=== PATIENT | male | born 1965 | race Caucasian/White ===

== ENCOUNTER 2017-04-09 12:02 | Inpatient (IN) | payer BC ==
--- NOTE | ~2017-04-09 | HP ---
History And Physical [address] [place]. [address] NAME: TAVO ONOFRE : 69 STATUS : ADM IN [facility]#: [id number] AGE: 51 ADM/REG DATE : 04/09/17 MR#: [id number] REPORT SERV DATE: 04/09/17 DICTATED BY: QUINTON OGDEN JR. DATE: 04/09/17 REPORT STATUS : Draft TRANSCRIBED BY: DARIO DATE: 04/09/17 DATE OF ADMISSION: 04/09/2017 CHIEF COMPLAINT: Chest pain. 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 He was in [place] for Mother's Day with family. He was in [place] when he developed substernal chest pain similar to prior presentations. The patient presented via EMS with ST-elevation inferior leads concerning for STEMI, and STEMI protocol was activated. The patient has been in his usual state of health with high functional capacity prior to this with no angina. PAST MEDICAL HISTORY: Includes prior myocardial infarction. He had stenting in the proximal and distal RCA as well as bifurcation stenting in the LAD and 1st diagonal in the past. His first NH he believes was in 2013. He has hypertension, mixed hyperlipidemia. He denies prior TIA or stroke or diabetes or renal insufficiency. ALLERGIES: DENIED. CURRENT MEDICATIONS: Please see the home medication sheet which was reviewed. SOCIAL HISTORY: He does not smoke, abuse alcohol, or use recreational drugs. FAMILY HISTORY: Negative for premature vascular events. REVIEW OF SYSTEMS: The patient denies fever or chills, bleeding diathesis, sudden weight gain or weight loss. Remainder as in HPI or negative. PHYSICAL EXAMINATION: VITAL SIGNS: Blood pressure is 112/81, heart rate 94, respirations 16. GENERAL: Middle-aged male, who is uncomfortable, in no acute distress. HEENT: Anicteric, no scleral injection, no oral lesions. NECK: No JVD, supple, no bruits. LUNGS: Clear to auscultation. No hyperexpansion. CARDIOVASCULAR: Regular rate and rhythm with no murmur, rub or gallop. ABDOMEN: Soft, nontender. Normoactive bowel sounds, no hepatosplenomegaly. EXTREMITIES: No clubbing, cyanosis or edema. SKIN: No visible rashes. NEURO/PSY: Normal affect, alert and oriented x3. MEDICAL DECISION MAKIN. Inferior STEMI. The patient had a prior PCI in the RCA. He has been compliant with low-dose Brilinta 60 p.o. b.i.d. He has persistent chest pain and an ST elevation despite medical therapy. The risks and benefits of emergent coronary angiography and PCI were explained, verbalized and accepted. 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 History And Physical [address] [address] NAME: TAVO ONOFRE : 69 STATUS : ADM IN PAT#: [id number] AGE: 51 ADM/REG DATE : 04/09/17 MR#: [id number] REPORT SERV DATE: 04/09/17 DICTATED BY: QUINTON OGDEN JR. DATE: 04/09/17 REPORT STATUS : Draft TRANSCRIBED BY: DARIO DATE: 04/09/17 2. Hypertension. We will adjust medicines as needed during this hospital stay. 3. Mixed hyperlipidemia. We will continue intensive statin therapy. MARAH/DARIO Quinton Ogden Jr., M.D. / [id number] CC: Quinton Ogden Jr., M.D.
[2017-04-09] MEDS ORDERED: BRILINTA90 MG PO (12:10)
[2017-04-09] MEDS ORDERED: BRILINTA 60MG PO (12:10)
[2017-04-09] MEDS ORDERED: NITROSTAT0.4 MG SL (12:11)
[2017-04-09] MEDS ORDERED: CRESTOR10 PO (12:11)
[2017-04-09] MEDS ORDERED: EPA DHA PO (12:12)
[2017-04-09] MEDS ORDERED: ASAB PO (12:12)
[2017-04-09] MEDS ORDERED: LOP25 PO (12:12)
[2017-04-09] MEDS ORDERED: MULTIVIT/MIN PO (12:13)
[2017-04-09] MEDS ORDERED: VITAMIN D31000 UNIT PO (12:13)
[2017-04-09] MEDS ORDERED: VITAMIN E PO (12:13)
[2017-04-09 12:14] LABS: BASOPHILS 0.7 %; BASOPHILS ABSOLUTE 0.05 10/3/uL (0.0-0.16); EOSINOPHILS 7.8 %; EOSINOPHILS ABSOLUTE 0.53 10/3/uL (0.0-0.53); HEMATOCRIT 44.6 % (40.0-51.0); HEMOGLOBIN 16.2 g/dL (13.6-17.8); IMMATURE GRANULOCYTES 0.7 %; IMMATURE GRANULOCYTES ABSOLUTE 0.05 10/3/uL (0.0-0.11); LYMPHOCYTES 39.3 %; LYMPHOCYTES ABSOLUTE 2.67 10/3/uL (0.67-4.30); MANUAL DIFF NO %; MEAN CORPUS HGB CONC 36.3 g/dL (32.0-36.0); MEAN CORPUSCULAR HEMOGLOB 30.4 pg (26.0-34.0); MEAN CORPUSCULAR VOLUME 83.7 fL (80-100); MEAN PLATELET VOLUME 8.7 fL (9.2-13.0); MONOCYTES 10.2 %; MONOCYTES ABSOLUTE 0.69 10/3/uL (0.21-1.20); NEUTROPHILS 41.3 %; PLATELET COUNT 193 10/3/uL (150-400); RBC DISTRIBUTION WIDTH 13.1 % (12.0-16.0); RED CELL COUNT 5.33 10/6/uL (4.7-6.1); WHITE BLOOD CELLS 6.8 10/3/uL (4.5-10.5)
[2017-04-09 12:21] LABS: PARTIAL THROMBO TIME 24.1 SEC (22.5-37.2); PROTIME (NOT ORD) 12.6 SEC (12.0-14.5)
[2017-04-09 12:31] LABS: BUN (BLOOD UREA NITROGEN) 16 MG/DL (6-23); CALCIUM, SERUM 9.2 MG/DL (8.5-10.4); CHEST PAIN PROFILE TAT 0 Hrs 21 Mins; CHLORIDE, SERUM 105 MMOL/L (96-112); CO2 (CARBON DIOXIDE) 29 MMOL/L (24-34); CREATININE 1.26 MG/DL (0.70-1.30); GFR AFRICAN AMERICAN 77 ML/MIN (>=60); GFR NON AFRICAN AMERICAN 67 ML/MIN (>=60); GLUCOSE, SERUM 121 MG/DL (60-99); SODIUM, SERUM 138 MMOL/L (135-148); TROPONIN I <0.02 NG/ML (<0.05)
[2017-04-09 12:33] LABS: POTASSIUM, SERUM 3.8 MMOL/L (3.5-5.3)
[2017-04-09 20:16] LABS: CK-MB 55.2 NG/ML; CKMB INDEX (NOT ORD) 11.5
[2017-04-10 05:15] LABS: BASOPHILS 0.7 %; BASOPHILS ABSOLUTE 0.05 10/3/uL (0.0-0.16); EOSINOPHILS ABSOLUTE 0.35 10/3/uL (0.0-0.53); IMMATURE GRANULOCYTES 0.4 %; IMMATURE GRANULOCYTES ABSOLUTE 0.03 10/3/uL (0.0-0.11); LYMPHOCYTES 22.9 %; LYMPHOCYTES ABSOLUTE 1.61 10/3/uL (0.67-4.30); MEAN CORPUS HGB CONC 35.4 g/dL (32.0-36.0); MEAN CORPUSCULAR HEMOGLOB 29.5 pg (26.0-34.0); MEAN CORPUSCULAR VOLUME 83.5 fL (80-100); MEAN PLATELET VOLUME 8.6 fL (9.2-13.0); MONOCYTES 9.1 %; MONOCYTES ABSOLUTE 0.64 10/3/uL (0.21-1.20); NEUTROPHILS 61.9 %; NEUTROPHILS ABSOLUTE 4.35 10/3/uL (2.02-8.40); PLATELET COUNT 171 10/3/uL (150-400); RBC DISTRIBUTION WIDTH 13.2 % (12.0-16.0); RED CELL COUNT 4.74 10/6/uL (4.7-6.1)
[2017-04-10 05:16] LABS: HEMATOCRIT 39.6 % (40.0-51.0); MANUAL DIFF NO %
[2017-04-10 05:24] LABS: BUN (BLOOD UREA NITROGEN) 14 MG/DL (6-23); CALCIUM, SERUM 8.3 MG/DL (8.5-10.4); CHLORIDE, SERUM 107 MMOL/L (96-112); CHOL/HDL RATIO(NOT ORDER) 3.6 (0-5); CHOLESTEROL 144 MG/DL (< 200); CK-MB 40.8 NG/ML; CKMB INDEX (NOT ORD) 9.3; CO2 (CARBON DIOXIDE) 29 MMOL/L (24-34); CPK 437 U/L (0-200); CREATININE 1.04 MG/DL (0.70-1.30); GFR AFRICAN AMERICAN 97 ML/MIN (>=60); GFR NON AFRICAN AMERICAN 84 ML/MIN (>=60); GLUCOSE, SERUM 111 MG/DL (60-99); HDL CHOLESTEROL 40 MG/DL (> 39); LDL CHOLESTEROL 31 MG/DL (< 130); NON-HDL CHOLESTEROL 104 MG/DL (< 160); POTASSIUM, SERUM 3.7 MMOL/L (3.5-5.3); SODIUM, SERUM 140 MMOL/L (135-148); TRIGLYCERIDE 369 MG/DL (< 150)
[2017-04-10 13:14] LABS: CK-MB 27.9 NG/ML; CKMB INDEX (NOT ORD) 7.1
[2017-04-11 05:13] LABS: BASOPHILS 0.6 %; BASOPHILS ABSOLUTE 0.04 10/3/uL (0.0-0.16); EOSINOPHILS 5.9 %; EOSINOPHILS ABSOLUTE 0.42 10/3/uL (0.0-0.53); HEMATOCRIT 41.2 % (40.0-51.0); HEMOGLOBIN 14.8 g/dL (13.6-17.8); IMMATURE GRANULOCYTES 0.6 %; IMMATURE GRANULOCYTES ABSOLUTE 0.04 10/3/uL (0.0-0.11); LYMPHOCYTES 22.8 %; LYMPHOCYTES ABSOLUTE 1.62 10/3/uL (0.67-4.30); MEAN CORPUS HGB CONC 35.9 g/dL (32.0-36.0); MEAN CORPUSCULAR HEMOGLOB 30.2 pg (26.0-34.0); MEAN CORPUSCULAR VOLUME 84.1 fL (80-100); MEAN PLATELET VOLUME 8.5 fL (9.2-13.0); MONOCYTES ABSOLUTE 0.71 10/3/uL (0.21-1.20); NEUTROPHILS 60.1 %; NEUTROPHILS ABSOLUTE 4.28 10/3/uL (2.02-8.40); PLATELET COUNT 179 10/3/uL (150-400); WHITE BLOOD CELLS 7.1 10/3/uL (4.5-10.5)
[2017-04-11 05:15] LABS: MANUAL DIFF NO %
[2017-04-11 05:28] LABS: BUN (BLOOD UREA NITROGEN) 17 MG/DL (6-23); CALCIUM, SERUM 8.6 MG/DL (8.5-10.4); CHLORIDE, SERUM 108 MMOL/L (96-112); CREATININE 1.12 MG/DL (0.70-1.30); GFR AFRICAN AMERICAN 89 ML/MIN (>=60); GFR NON AFRICAN AMERICAN 77 ML/MIN (>=60); GLUCOSE, SERUM 106 MG/DL (60-99); POTASSIUM, SERUM 3.9 MMOL/L (3.5-5.3); SODIUM, SERUM 141 MMOL/L (135-148)
[2017-04-11 05:30] LABS: CO2 (CARBON DIOXIDE) 24 MMOL/L (24-34)
[2017-04-11] MEDS ORDERED: BRILINTA90 MG PO (08:32)
[2017-04-11] MEDS ORDERED: BACTRONASA NAS (08:35)
== END 2017-04-11 10:51 | disposition home or self-care (01) | DRG 247 ==
LOC: ER 12:02 → CCU 12:05 → SSU2 12:26 → CCU 13:43
PROVIDERS: Emergency Medicine; Internal Medicine Cardiovascular Disease; Internal Medicine Interventional Cardiology
PROC: 027034Z Dilation of Coronary Artery, One Artery with Drug-eluting Intraluminal Device, Percutaneous Approach (ICD-10-PCS; principal; 2017-04-09)
PROC: 4A023N7 Measurement of Cardiac Sampling and Pressure, Left Heart, Percutaneous Approach (ICD-10-PCS; 2017-04-09)
PROC: B2151ZZ Fluoroscopy of Left Heart using Low Osmolar Contrast (ICD-10-PCS; 2017-04-09)
PROC: B2111ZZ Fluoroscopy of Multiple Coronary Arteries using Low Osmolar Contrast (ICD-10-PCS; 2017-04-09)
DX: I21.19 ST elevation (STEMI) myocardial infarction involving other coronary artery of inferior wall (principal); I10 Essential (primary) hypertension; I25.10 Atherosclerotic heart disease of native coronary artery without angina pectoris; E78.2 Mixed hyperlipidemia; E78.00 Pure hypercholesterolemia, unspecified; I25.2 Old myocardial infarction; Z95.5 Presence of coronary angioplasty implant and graft
CPT/HCPCS: 71010; 80048; 80061; 82550; 82553; 82565; 83735; 84484; 85025; 85610; 85730; 87641; 93005; 93458; 99152; 99153; 99285; A9270-GY; C1713; C1725; C1769; C1874; C1887; C1894; C8929; C9606; J0583; J2250; J3010; Q9957; Q9967